=== PATIENT | female | born 1960 | race Caucasian/White ===

== ENCOUNTER 2017-09-08 17:52 | Observation (INO) ==
[2017-09-08] MEDS ORDERED: MORPHINE 2 MG/1 ML SYRINGE IV STA (18:38)
[2017-09-08] MEDS ORDERED: ASPIRIN 325 MG TABLET PO STA (18:38)
[2017-09-08] MEDS ORDERED: NITROGLYCERIN 2% OINT 1 INCH/GM PACK TOP STA (18:38)
[2017-09-08] MEDS ORDERED: ALUM/MAG/SIMETH/LIDO VISC 1:1 30 ML BOTTLE PO STA (18:38)
[2017-09-08] MEDS ORDERED: ONDANSETRON 4 MG/2 ML VIAL IV STA (18:38)
[2017-09-08 18:46] LABS: Basophils % 0.5 % (0.0-0.8); Eosinophils # 0.3 10*3/uL (0.0-0.87); Eosinophils % 3.1 % (0.00-10.9); Hematocrit 39.3 VOL% (35.7-47.0); Hemoglobin 12.8 GM/DL (12.0-16.0); Immature Granulocytes % 0.7 %; Immature Granulocytes Absolute 0.06 #; Lymphocytes # 2.4 10*3/uL (1.4-4.0); Lymphocytes % 27.8 % (21.3-54.2); Mean Corpuscular HGB Conc 32.6 GM/DL (32-36); Mean Corpuscular Hemoglobin 28 PG (27-34); Mean Corpuscular Volume 85.8 FL (87-102); Monocytes # 0.7 10*3/uL (0.11-0.8); Monocytes % 8.4 % (1.7-12.7); Neutrophils # 5.2 10*3/uL (1.4-7.4); Neutrophils % 59.5 % (38.7-73.9); Platelet Count 223 T/CUMM (130-400); Red Blood Count 4.58 MC/CUMM (3.8-5.5); Red Cell Distribution Width 13.9 % (9.3-17.3); White Blood Count 8.7 T/CUMM (4-12)
[2017-09-08 18:56] LABS: INR 0.9; PT Patient Result 9.5 SECS
[2017-09-08 19:06] LABS: Alanine Aminotransferase 46 U/L (13-56); Alkaline Phosphatase 101 U/L (45-117); Aspartate Amino Transferase 19 U/L (0-37); Blood Urea Nitrogen 15 MG/DL (7-18); Glucose 103 MG/DL (74-106); Osmolality,Calculated 279.4 MOS/KG (273-304); Potassium 3.8 MMOL/L (3.5-5.1); Sodium 140 MMOL/L (136-145); Troponin I Only < 0.015 NG/ML (0.00-0.045)
[2017-09-08] MEDS ORDERED: ENOXAPARIN 100 MG/ML SYRINGE SUBCUT STA (19:44)
[2017-09-08] MEDS ORDERED: ENOXAPARIN 100 MG/ML SYRINGE SUBCUT ONE (20:05)
[2017-09-08] MEDS ORDERED: NITROGLYCERIN 2% OINT 1 INCH/GM PACK TOP ONE (20:05)
[2017-09-08] MEDS ORDERED: ONDANSETRON 4 MG/2 ML VIAL ONE (20:05)
[2017-09-08] MEDS ORDERED: ALUM/MAG/SIMETH/LIDO VISC 1:1 30 ML BOTTLE PO ONE (20:06)
[2017-09-08] MEDS ORDERED: MORPHINE 2 MG/1 ML SYRINGE ONE (20:06)
[2017-09-08] MEDS ORDERED: ASPIRIN 325 MG TABLET ONE (20:06)
[2017-09-08] MEDS ORDERED: ENOXAPARIN 40 MG/0.4 ML SYRINGE SUBCUT SCH (21:00)
[2017-09-09 05:01] LABS: Basophils % 0.6 % (0.0-0.8); Eosinophils # 0.2 10*3/uL (0.0-0.87); Hematocrit 36.7 VOL% (35.7-47.0); Hemoglobin 11.9 GM/DL (12.0-16.0); Immature Granulocytes % 0.6 %; Immature Granulocytes Absolute 0.04 #; Lymphocytes # 1.9 10*3/uL (1.4-4.0); Lymphocytes % 28.2 % (21.3-54.2); Mean Corpuscular HGB Conc 32.4 GM/DL (32-36); Mean Corpuscular Hemoglobin 28 PG (27-34); Mean Corpuscular Volume 85.3 FL (87-102); Monocytes # 0.6 10*3/uL (0.11-0.8); Neutrophils # 3.8 10*3/uL (1.4-7.4); Neutrophils % 58.6 % (38.7-73.9); Platelet Count 173 T/CUMM (130-400); Red Cell Distribution Width 13.9 % (9.3-17.3); White Blood Count 6.6 T/CUMM (4-12)
[2017-09-09 05:40] LABS: Calcium 8.6 MG/DL (8.5-10.1); Osmolality,Calculated 283.1 MOS/KG (273-304); Risk Ratio 5.42; Thyroid Stimulating Hormone 2.73 uIU/ml (0.358-3.74); VLDL CHOLESTEROL 51.4 MG/DL
[2017-09-09] MEDS ORDERED: LEVOTHYROXINE 125 MCG TABLET PO SCH (07:00)
[2017-09-09] MEDS ORDERED: POTASSIUM GLUCONATE 500 MG TABLET PO SCH (09:00)
[2017-09-09] MEDS ORDERED: PANTOPRAZOLE 40 MG TABLET PO SCH (09:00)
[2017-09-09] MEDS ORDERED: MAGNESIUM CHLORIDE 64 MG TABLET PO SCH (09:00)
[2017-09-09] MEDS ORDERED: ASCORBIC ACID 500 MG TABLET PO SCH (09:00)
[2017-09-09] MEDS ORDERED: GLUCAGON 1 MG VIAL IM PRN (10:39)
[2017-09-09] MEDS ORDERED: DEXTROSE 50% 25 GM/50 ML VIAL IV PRN (10:39)
[2017-09-09] MEDS: SIMETHICONE CHEW 80 MG TABLET PO SCH ×2 (11:35→14:33)
[2017-09-09 16:37] VITALS: BP 122/75
== END 2017-09-09 18:43 | disposition home or self-care (01) ==
LOC: N.ED 17:52 → N.EDINP 17:52 → N.TELEN 09-09 01:56
PROVIDERS: ADMIT Internal Medicine; ATTEND Internal Medicine

== ENCOUNTER 2019-11-23 13:46 | Inpatient (IN) ==
[2019-11-23 14:22] LABS: Basophils % 0.5 % (0.0-0.8); Eosinophils # 0.3 10*3/uL (0.0-0.87); Eosinophils % 3.7 % (0.00-10.9); Hematocrit 42.4 VOL% (35.7-47.0); Hemoglobin 13.5 GM/DL (12.0-16.0); Immature Granulocytes % 0.5 %; Immature Granulocytes Absolute 0.04 #; Lymphocytes # 1.8 10*3/uL (1.4-4.0); Lymphocytes % 22.2 % (21.3-54.2); Mean Corpuscular HGB Conc 31.8 GM/DL (32-36); Mean Corpuscular Volume 86.9 FL (87-102); Monocytes % 7.6 % (1.7-12.7); Neutrophils % 65.5 % (38.7-73.9); Platelet Count 247 T/CUMM (130-400); Red Blood Count 4.88 MC/CUMM (3.8-5.5); Red Cell Distribution Width 13.3 % (9.3-17.3); White Blood Count 7.9 T/CUMM (4-12)
[2019-11-23 14:48] LABS: Albumin 3.6 G/DL (3.4-5.0); Bilirubin,Total 0.8 MG/DL (0.2-1.0); Calcium 8.8 MG/DL (8.5-10.1); Osmolality,Calculated 275.8 MOS/KG (273-304); Total Protein 8.2 G/DL (6.4-8.3)
[2019-11-23] MEDS ORDERED: ALUM/MAG/SIMETH/LIDO VISC 1:1 30 ML BOTTLE PO STA (14:55)
[2019-11-23] MEDS ORDERED: ALUM/MAG/SIMETH/LIDO VISC 1:1 30 ML BOTTLE PO ONE (14:59)
[2019-11-23] MEDS ORDERED: ONDANSETRON 4 MG/2 ML VIAL ONE (15:26)
[2019-11-23] MEDS ORDERED: ONDANSETRON 4 MG/2 ML VIAL IV STA (15:30)
[2019-11-23] MEDS ORDERED: ASPIRIN 325 MG TABLET PO STA (16:33)
[2019-11-23] MEDS ORDERED: MORPHINE 4 MG/1 ML VIAL IV STA (16:33)
[2019-11-23] MEDS ORDERED: NITROGLYCERIN 2% OINT 1 INCH/GM PACK TOP PRN (16:34)
[2019-11-23] MEDS ORDERED: DEXTROSE 10% 250 ML BAG IV PRN (16:54)
[2019-11-23] MEDS ORDERED: ENOXAPARIN 100 MG/ML SYRINGE SUBCUT ONE (16:54)
[2019-11-23] MEDS ORDERED: ONDANSETRON 4 MG/2 ML VIAL IV PRN (16:54)
[2019-11-23] MEDS ORDERED: DOCUSATE SODIUM 100 MG CAPSULE PO PRN (16:54)
[2019-11-23] MEDS ORDERED: ALUMINUM/MAGNES/SIMETH MAX STR 30 ML UDCUP PO PRN (16:54)
[2019-11-23] MEDS ORDERED: GLUCAGON 1 MG VIAL IM PRN (16:54)
[2019-11-23] MEDS: SODIUM CHLORIDE 0.9% 1,000 ML IV SCH (18:43)
[2019-11-23 19:56] LABS: CKMB % 9.4 %
[2019-11-23 19:59] LABS: Troponin I 1.03 NG/ML (0.00-0.045)
[2019-11-23] MEDS ORDERED: NITROGLYCERIN SL 0.4 MG TABLET SL PRN (20:11)
[2019-11-23] MEDS: INSULIN LISPRO 100 UNIT/ML SUBCUT SCH (20:48)
[2019-11-24] MEDS: SODIUM CHLORIDE 0.9% 1,000 ML IV SCH (02:44)
[2019-11-24] MEDS: LEVOTHYROXINE 150 MCG TABLET PO SCH (05:41)
[2019-11-24 06:39] LABS: Basophils % 0.4 % (0.0-0.8); Eosinophils # 0.2 10*3/uL (0.0-0.87); Eosinophils % 1.8 % (0.00-10.9); Hematocrit 40.3 VOL% (35.7-47.0); Hemoglobin 12.3 GM/DL (12.0-16.0); Immature Granulocytes % 0.8 %; Immature Granulocytes Absolute 0.08 #; Lymphocytes % 19.5 % (21.3-54.2); Mean Corpuscular HGB Conc 30.5 GM/DL (32-36); Mean Corpuscular Volume 89.2 FL (87-102); Mean Platelet Volume 10.7 FL (9.6-12.0); Neutrophils % 68.5 % (38.7-73.9); Platelet Count 215 T/CUMM (130-400); Red Blood Count 4.52 MC/CUMM (3.8-5.5); Red Cell Distribution Width 13.4 % (9.3-17.3); White Blood Count 10.3 T/CUMM (4-12)
[2019-11-24 07:04] LABS: Albumin 3.3 G/DL (3.4-5.0); Calcium 8.4 MG/DL (8.5-10.1); Osmolality,Calculated 274.5 MOS/KG (273-304); Risk Ratio 5.28; Thyroid Stimulating Hormone 0.159 uIU/ml (0.358-3.74); Total Protein 7.5 G/DL (6.4-8.3); VLDL CHOLESTEROL 32.2 MG/DL
[2019-11-24] MEDS: INSULIN LISPRO 100 UNIT/ML SUBCUT SCH ×4 (07:53→21:03)
[2019-11-24] MEDS ORDERED: diphenhydrAMINE CAP 25 MG CAPSULE PO ONE (08:05)
[2019-11-24] MEDS ORDERED: MAGNESIUM SULF RIDER 2 GM in PREMIX 1 EACH IV PRN (08:05)
[2019-11-24] MEDS ORDERED: DIAZEPAM 5 MG TABLET PO ONE (08:05)
[2019-11-24] MEDS ORDERED: POTASSIUM CHLORIDE RIDER 10 MEQ in PREMIX 1 EACH IV PRN (08:05)
[2019-11-24] MEDS ORDERED: ENOXAPARIN 100 MG/ML SYRINGE SUBCUT ONE (08:46)
[2019-11-24] MEDS ORDERED: ASPIRIN EC 325 MG TABLET PO SCH (09:00)
[2019-11-24] MEDS ORDERED: METOPROLOL TARTRATE 25 MG TABLET PO SCH (09:00)
[2019-11-24] MEDS ORDERED: PANTOPRAZOLE 40 MG TABLET PO SCH (09:00)
[2019-11-24 10:08] LABS: CKMB % 11.3 %
[2019-11-24 10:09] LABS: Troponin I 79.5 NG/ML (0.00-0.045)
[2019-11-24] MEDS ORDERED: NITROGLYCERIN 2% OINT 1 INCH/GM PACK TOP ONE (10:16)
[2019-11-24] MEDS ORDERED: ALUM/MAG/SIMETH/LIDO VISC 1:1 30 ML BOTTLE PO ONE (10:16)
[2019-11-24 12:52] LABS: CKMB % 10.8 %
[2019-11-24 12:53] LABS: Troponin I 77.5 NG/ML (0.00-0.045)
[2019-11-24] MEDS ORDERED: HEPARIN/NACL 0.9% 2 UNITS/ML 1,000 ML IV ONE (13:14)
[2019-11-24] MEDS ORDERED: LIDOCAINE 1%/EPI INJ 20 ML VIAL ONE (13:30)
[2019-11-24] MEDS ORDERED: MIDAZOLAM 2 MG/2 ML VIAL ONE (13:30)
[2019-11-24] MEDS ORDERED: fentaNYL 100 MCG/2 ML VIAL ONE (13:31)
[2019-11-24] MEDS ORDERED: ENOXAPARIN 60 MG/0.6 ML SYRINGE ONE (13:52)
[2019-11-24] MEDS ORDERED: TIROFIBAN 5,000 MCG/100 ML PREMIX IV ONE (13:53)
[2019-11-24] MEDS ORDERED: TICAGRELOR 90 MG TABLET ONE (14:01)
[2019-11-24] MEDS ORDERED: TIROFIBAN 5,000 MCG/100 ML PREMIX IV SCH (14:02)
[2019-11-24] MEDS: METOPROLOL SUCCINATE XL 25 MG TABLET PO SCH (17:14)
[2019-11-24] MEDS: MORPHINE 4 MG/1 ML VIAL IV PRN ×2 (17:14→21:44)
[2019-11-24 20:06] LABS: CKMB % 7.6 %
[2019-11-24 20:09] LABS: Troponin I 79.9 NG/ML (0.00-0.045)
[2019-11-24] MEDS: ATORVASTATIN 40 MG TABLET PO SCH (21:17)
[2019-11-24] MEDS: TICAGRELOR 90 MG TABLET PO SCH (21:17)
[2019-11-24 22:58] LABS: CKMB % 6.4 %
[2019-11-25 01:29] LABS: Basophils % 0.3 % (0.0-0.8); Eosinophils # 0.1 10*3/uL (0.0-0.87); Eosinophils % 0.5 % (0.00-10.9); Hemoglobin 12.8 GM/DL (12.0-16.0); Immature Granulocytes % 0.7 %; Immature Granulocytes Absolute 0.08 #; Lymphocytes # 1.5 10*3/uL (1.4-4.0); Lymphocytes % 12.8 % (21.3-54.2); Mean Corpuscular HGB Conc 31.2 GM/DL (32-36); Mean Corpuscular Volume 87.8 FL (87-102); Mean Platelet Volume 10.6 FL (9.6-12.0); Monocytes % 11.4 % (1.7-12.7); Neutrophils % 74.3 % (38.7-73.9); Platelet Count 219 T/CUMM (130-400); Red Blood Count 4.67 MC/CUMM (3.8-5.5); Red Cell Distribution Width 13.4 % (9.3-17.3); White Blood Count 11.8 T/CUMM (4-12)
[2019-11-25 01:46] LABS: Albumin 3.5 G/DL (3.4-5.0); Bilirubin,Total 2.8 MG/DL (0.2-1.0); Osmolality,Calculated 270.1 MOS/KG (273-304); Total Protein 7.9 G/DL (6.4-8.3)
[2019-11-25 02:01] LABS: CKMB % 5.5 %
[2019-11-25 02:03] LABS: Troponin I 48.4 NG/ML (0.00-0.045)
[2019-11-25] MEDS: LEVOTHYROXINE 150 MCG TABLET PO SCH (05:59)
[2019-11-25] MEDS: PANTOPRAZOLE 40 MG TABLET PO SCH (09:18)
[2019-11-25] MEDS: METOPROLOL SUCCINATE XL 25 MG TABLET PO SCH (09:18)
[2019-11-25] MEDS: TICAGRELOR 90 MG TABLET PO SCH ×2 (09:18→22:12)
[2019-11-25] MEDS: POTASSIUM GLUCONATE 500 MG TABLET PO SCH (09:18)
[2019-11-25] MEDS: ASPIRIN EC 81 MG TABLET PO SCH (09:18)
[2019-11-25] MEDS: MAGNESIUM GLUCONATE 500 MG TABLET PO SCH (09:18)
[2019-11-25] MEDS: INSULIN LISPRO 100 UNIT/ML SUBCUT SCH ×4 (09:23→22:12)
[2019-11-25] MEDS ORDERED: lisinopriL 5 MG TABLET PO ONE (16:50)
[2019-11-25] MEDS: ATORVASTATIN 40 MG TABLET PO SCH (22:12)
[2019-11-26 06:02] LABS: Albumin 3.1 G/DL (3.4-5.0); Bilirubin,Total 2.2 MG/DL (0.2-1.0); Calcium 8.9 MG/DL (8.5-10.1); Osmolality,Calculated 278.7 MOS/KG (273-304); Total Protein 7.3 G/DL (6.4-8.3)
[2019-11-26] MEDS: LEVOTHYROXINE 150 MCG TABLET PO SCH (06:37)
[2019-11-26] MEDS ORDERED: lisinopriL 5 MG TABLET PO SCH (09:00)
[2019-11-26] MEDS ORDERED: SEMAGLUTIDE 1 MG SUBCUT SCH (09:00)
[2019-11-26] MEDS: INSULIN LISPRO 100 UNIT/ML SUBCUT SCH ×2 (09:21→12:26)
[2019-11-26] MEDS: TICAGRELOR 90 MG TABLET PO SCH (09:31)
[2019-11-26] MEDS: METOPROLOL SUCCINATE XL 25 MG TABLET PO SCH (09:31)
[2019-11-26] MEDS: ASPIRIN EC 81 MG TABLET PO SCH (09:31)
[2019-11-26] MEDS: PANTOPRAZOLE 40 MG TABLET PO SCH (09:31)
[2019-11-26] MEDS: POTASSIUM GLUCONATE 500 MG TABLET PO SCH (10:43)
[2019-11-26] MEDS: MAGNESIUM GLUCONATE 500 MG TABLET PO SCH (10:43)
[2019-11-26 11:50] VITALS: BP 107/66
== END 2019-11-26 13:00 | disposition home or self-care (01) | DRG 247 ==
LOC: N.ED 13:46 → N.EDINP 13:46 → N.5E 17:30 → N.TELES 11-24 14:50 → SUATTDRO 11-24 14:52
PROVIDERS: ADMIT Family Medicine; ATTEND Internal Medicine
PROC: CLCCHCL (ICD-10-PCS; 2019-11-24 14:15)